=== PATIENT | female | born 1935 | race Caucasian/White ===

== ENCOUNTER 2017-07-26 07:49 | Inpatient (IN) | payer OTHER ==
[~2017-07-26] VITALS: Ht 165.1 cm; Wt 69.8 kg
[~2017-07-26 07:49] MED LIST: BAY PO; CELEXA40 MG PO; CLONAZEPAM0.5 MG PO; HYZAAR1 TA1 PO; PRI20 PO; TYLENOL EXTRA500 M2 PO
[2017-07-26 10:26] LABS: BASOPHIL % 0.2 % (0-2); PLATELET COUNT 250 x10^3mcL (130-400); RED CELL DISTRIBUTION WIDTH 13.4 % (11.5-14.5)
[2017-07-26 10:51] LABS: CALCIUM 8.9 mg/dL (8.5-10.1); CARBON DIOXIDE 29.2 mmol/L (21-32); CHLORIDE SERUM 102 mmol/L (98-107); CREATININE SERUM 0.8 mg/dL (0.6-1.0); GLUCOSE SERUM 112 mg/dL (74-106); POTASSIUM SERUM 3.5 mmol/L (3.5-5.1); SODIUM SERUM 135 mmol/L (136-145)
[2017-07-26 10:56] LABS: ALBUMIN 3.8 g/dL (3.4-5.0); ALKALINE PHOSPHATASE 70 U/L (46-116); ALT/SGPT 33 U/L (14-59); AST/SGOT 31 U/L (15-37); BILIRUBIN TOTAL 0.9 mg/dL (0.20-1.00); TOTAL PROTEIN, SERUM 8.1 g/dL (6.4-8.2)
[2017-07-26 12:18] LABS: MAGNESIUM 2.1 mg/dL (1.8-2.4); PHOSPHOROUS 2.4 mg/dL (2.5-4.9)
[2017-07-26 12:22] LABS: CHOLESTEROL/HDL RATIO 4.4
[2017-07-26 12:24] VITALS: BP 123/73
[2017-07-26 12:25] LABS: T3 TOTAL 1.02 ng/mL
[2017-07-26 12:32] LABS: FREE T4 1.05 ng/dL (0.76-1.46); FREE THYROXINE INDEX 3.2 ug/dL (1.4-4.5); T4(THYROXINE) 9.8 ug/dL (4.7-13.3)
[2017-07-26 15:00] LABS: microscopic required? YES; urine erythrocyte NEGATIVE (NEGATIVE)
[2017-07-26 21:50] VITALS: BP 108/50
[2017-07-27 06:14] VITALS: BP 125/63
[2017-07-27 06:52] LABS: CARBON DIOXIDE 26.3 mmol/L (21-32); CHLORIDE SERUM 108 mmol/L (98-107); CREATININE SERUM 0.7 mg/dL (0.6-1.0); GLUCOSE SERUM 98 mg/dL (74-106); PHOSPHOROUS 3.3 mg/dL (2.5-4.9); POTASSIUM SERUM 3.9 mmol/L (3.5-5.1); SODIUM SERUM 141 mmol/L (136-145)
[2017-07-27 06:53] LABS: BASOPHIL % 0.5 % (0-2); PLATELET COUNT 210 x10^3mcL (130-400); RED CELL DISTRIBUTION WIDTH 13.9 % (11.5-14.5)
[2017-07-27 10:20] VITALS: BP 119/62
[2017-07-27 14:22] VITALS: BP 117/61
[2017-07-27 22:16] VITALS: BP 133/68
[2017-07-28 06:03] LABS: BASOPHIL % 0.8 % (0-2); PLATELET COUNT 214 x10^3mcL (130-400); RED CELL DISTRIBUTION WIDTH 13.1 % (11.5-14.5)
[2017-07-28 06:16] LABS: CALCIUM 8.3 mg/dL (8.5-10.1); CARBON DIOXIDE 29.3 mmol/L (21-32); CHLORIDE SERUM 108 mmol/L (98-107); CREATININE SERUM 0.7 mg/dL (0.6-1.0); GLUCOSE SERUM 102 mg/dL (74-106); POTASSIUM SERUM 4.3 mmol/L (3.5-5.1); SODIUM SERUM 140 mmol/L (136-145)
[2017-07-28 06:19] VITALS: BP 141/71
[2017-07-28 08:56] VITALS: BP 138/71
[2017-07-28 12:05] VITALS: BP 152/78
[2017-07-28 18:15] VITALS: BP 144/75
[2017-07-28 21:53] VITALS: BP 154/76
[2017-07-29] VITALS (7 sets, daily range): BP systolic 145–161; BP diastolic 73–81
[2017-07-29] MEDS ORDERED: MECLIZINE HYD12.5 MG PO (14:11)
[2017-07-29] MEDS ORDERED: LIPI10 PO (15:04)
[2017-07-29] MEDS ORDERED: CYCLOBENZAPRINE5 MG PO (15:11)
[2017-07-29] MEDS ORDERED: TYL325 PO (15:11)
== END 2017-07-29 16:15 | disposition home health service (06) | DRG 73 ==
LOC: ED 07:49 → DU 11:01
PROVIDERS: Emergency Medicine; ADMIT Family Medicine
DX: G90.9 Disorder of the autonomic nervous system, unspecified (principal); N17.0 Acute kidney failure with tubular necrosis; E87.1 Hypo-osmolality and hyponatremia; S23.3XXA Sprain of ligaments of thoracic spine, initial encounter; E11.9 Type 2 diabetes mellitus without complications; E83.51 Hypocalcemia; E83.39 Other disorders of phosphorus metabolism; F32.9 Major depressive disorder, single episode, unspecified; E78.5 Hyperlipidemia, unspecified; M81.0 Age-related osteoporosis without current pathological fracture; Z68.25 Body mass index [BMI] 25.0-25.9, adult; W18.39XA Other fall on same level, initial encounter; Y92.028 Other place in mobile home as the place of occurrence of the external cause
CPT/HCPCS: 72072; 82962; 83880; 84439; 97110-GP; 97116-GP; 97530-GP; J1885; J2001; J7030; J8597; Q0092

== ENCOUNTER 2018-01-05 06:55 | Emergency (ER) | payer OTHER ==
[~2018-01-05] VITALS: Ht 154.9 cm; Wt 68.5 kg
[~2018-01-05 06:55] MED LIST changes: +CYCLOBENZAPRINE5 MG PO; +LIPI10 PO; +MECLIZINE HYD12.5 MG PO; +TYL325 PO
[2018-01-05 07:02] VITALS: Ht 154.9 cm; Wt 68.5 kg
[2018-01-05 07:52] LABS: CALCIUM 8.7 mg/dL (8.5-10.1); CARBON DIOXIDE 27.5 mmol/L (21-32); CHLORIDE SERUM 98 mmol/L (98-107); CREATININE SERUM 0.7 mg/dL (0.6-1.0); GLUCOSE SERUM 117 mg/dL (74-106); POTASSIUM SERUM 3.1 mmol/L (3.5-5.1); SODIUM SERUM 137 mmol/L (136-145)
[2018-01-05 08:04] LABS: ALBUMIN 3.7 g/dL (3.4-5.0); ALKALINE PHOSPHATASE 68 U/L (46-116); ALT/SGPT 57 U/L (14-59); AMYLASE 77 U/L (25-115); AST/SGOT 40 U/L (15-37); BILIRUBIN TOTAL 0.64 mg/dL (0.20-1.00); CHOLESTEROL 179 mg/dL (<200); HDL CHOLESTEROL 47 mg/dL (40-60); LIPASE 303 IU/L (73-393); T4(THYROXINE) 10.4 ug/dL (4.7-13.3); TOTAL PROTEIN, SERUM 7.8 g/dL (6.4-8.2)
[2018-01-05 08:10] LABS: microscopic required? NO
[2018-01-05 08:11] LABS: BASOPHIL % 0.5 % (0-2); PLATELET COUNT 221 x10^3mcL (130-400); RED CELL DISTRIBUTION WIDTH 13.4 % (11.5-14.5)
[2018-01-05 08:35] LABS: UA SPECIFIC GRAVITY 1.015 (1.005-1.035); urine erythrocyte NEGATIVE (NEGATIVE)
[2018-01-05 09:24] LABS: AMPHETAMINE QUAL UR NONE DETECTED (NEG <=1000)
[2018-01-05 10:03] VITALS: BP 132/70
== END 2018-01-05 10:40 | disposition home or self-care (01) ==
LOC: ED 06:55
PROVIDERS: Emergency Medicine
DX: J98.01 Acute bronchospasm (principal); E87.6 Hypokalemia; I10 Essential (primary) hypertension; F41.9 Anxiety disorder, unspecified; I45.2 Bifascicular block
CPT/HCPCS: 36415; 83880; 87804; J2930; J7613; J7644; Q0092

== ENCOUNTER 2018-04-19 11:19 | Emergency (ER) | payer OTHER ==
[~2018-04-19] VITALS: Ht 157.5 cm; Wt 69.4 kg
[2018-04-19 11:25] VITALS: Ht 157.5 cm; Wt 69.4 kg
[2018-04-19 12:34] LABS: BASOPHIL % 0.5 % (0-2); PLATELET COUNT 282 x10^3mcL (130-400); RED CELL DISTRIBUTION WIDTH 13.3 % (11.5-14.5)
[2018-04-19 12:44] LABS: CARBON DIOXIDE 30.9 mmol/L (21-32); CHLORIDE SERUM 103 mmol/L (98-107); CREATININE SERUM 0.7 mg/dL (0.6-1.0); GLUCOSE SERUM 105 mg/dL (74-106); POTASSIUM SERUM 3.5 mmol/L (3.5-5.1); SODIUM SERUM 135 mmol/L (136-145)
[2018-04-19 12:52] LABS: ALBUMIN 3.6 g/dL (3.4-5.0); ALKALINE PHOSPHATASE 70 U/L (46-116); ALT/SGPT 32 U/L (14-59); AST/SGOT 24 U/L (15-37); BILIRUBIN TOTAL 0.7 mg/dL (0.20-1.00); LIPASE 222 IU/L (73-393); TOTAL PROTEIN, SERUM 7.4 g/dL (6.4-8.2)
[2018-04-19 13:49] VITALS: BP 109/68
== END 2018-04-19 13:49 | disposition home or self-care (01) ==
LOC: ED 11:19
PROVIDERS: Emergency Medicine
DX: R10.13 Epigastric pain (principal); R07.89 Other chest pain; I10 Essential (primary) hypertension
CPT/HCPCS: 36415; 83880; Q0092